=== PATIENT | male | born 1970 | race Caucasian/White ===

== ENCOUNTER 2018-03-02 08:37 | Emergency (ER) | payer BC, OTHER | END 2018-03-02 11:26 | disposition home or self-care (01) | LOC: FTE 08:37 | DX: R05 Cough (principal); F17.210 Nicotine dependence, cigarettes, uncomplicated; R07.9 Chest pain, unspecified | CPT/HCPCS: 71045; 99284-25 ==

== ENCOUNTER 2018-06-02 08:25 | Emergency (ER) | payer BC | END 2018-06-02 08:55 | disposition home or self-care (01) | LOC: FTE 08:25 | DX: R05 Cough (principal); Z87.891 Personal history of nicotine dependence | CPT/HCPCS: 87206; 99283 ==